=== PATIENT | male | born 1945 | race Caucasian/White ===

== ENCOUNTER 2023-08-26 09:54 | Day surgery (SDC) | payer MEDICARE, OTHER, SELFPAY ==
--- NOTE | 2023-08-25 11:43 | P.CONAN_ITS ---
Documented by User: Afsaneh Brown NP 08/25/23 11:43 HPI - Anesthesia Eval Consult details Narrative: 78yo M for Colonoscopy Eliquis for hx DVT PMFSH Past Medical History Medical History Overactive bladder Enlarged prostate Hx of fracture of finger DVT (deep venous thrombosis) Basal cell carcinoma BRADLEY on CPAP Low grade B cell lymphoproliferative disorder MGUS (monoclonal gammopathy of unknown significance) Anxiety and depression Impaired glucose tolerance BPH (benign prostatic hyperplasia) Supraventricular tachycardia Elevated cholesterol HTN (hypertension) Surgical History Surgical History Hx of hand surgery History of surgery on right wrist S/P IVC filter Hx of repair of left rotator cuff Hx of Achilles tendon repair Hx of right knee surgery H/O colonoscopy Social History Social History Patient Tobacco Use Status: Never used Tobacco Meds Allergies Allergy/AdvReac Type Severity Reaction Status Date / Time bee pollen [bee stings] Allergy Unknown Verified 08/26/23 10:10 Home Medications Medication Instructions Recorded Confirmed Last Taken Type ZZ-baxndlkigcg-jpwimk ox-Zn ER 500 tab PO 08/25/23 Unknown History mcg-750 mg-1.5 mg-25 mg tablet,ER apixaban 2.5 mg tablet (Eliquis) 2.5 mg PO BID 08/25/23 08/25/23 08/22/23 History atorvastatin 10 mg tablet 10 mg PO DAILY 08/25/23 08/25/23 Unknown History cholecalciferol (vitamin D3) 25 25 mcg PO DAILY 08/25/23 08/25/23 Unknown History mcg (1,000 unit) tablet (Vitamin D3) escitalopram oxalate 10 mg tablet 10 mg PO DAILY 08/25/23 08/25/23 Unknown History lisinopril 10 mg tablet 10 mg PO DAILY 08/25/23 08/25/23 Unknown History oxybutynin chloride 10 mg 10 mg PO DAILY 08/25/23 08/25/23 Unknown History tablet,extended release 24 hr tamsulosin 0.4 mg capsule 0.4 mg PO DAILY 08/25/23 08/25/23 Unknown History Assessment and Plan Assessment Anesthesia Assessment: Chart Reviewed Documented by User: Manasa Block MD 08/26/23 11:40 HPI - Anesthesia Eval Consult details Narrative: 78yo M for Colonoscopy Eliquis for hx DVT. 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 (monoclonal gammopathy of unknown significance) Anxiety and depression Impaired glucose tolerance BPH (benign prostatic hyperplasia) Supraventricular tachycardia Elevated cholesterol HTN (hypertension) Surgical History Surgical History Hx of hand surgery History of surgery on right wrist S/P IVC filter Hx of repair of left rotator cuff Hx of Achilles tendon repair Hx of right knee surgery H/O colonoscopy Social History Social History Patient Tobacco Use Status: Never used Tobacco Meds Allergies Allergy/AdvReac Type Severity Reaction Status Date / Time bee pollen [bee stings] Allergy Unknown Verified 08/26/23 10:10 Home Medications Medication Instructions Recorded Confirmed Last Taken Type KP-ssiphflekth-ftexee ox-Zn ER 500 tab PO 08/25/23 Unknown History mcg-750 mg-1.5 mg-25 mg tablet,ER apixaban 2.5 mg tablet (Eliquis) 2.5 mg PO BID 08/25/23 08/25/23 08/22/23 History atorvastatin 10 mg tablet 10 mg PO DAILY 08/25/23 08/25/23 Unknown History cholecalciferol (vitamin D3) 25 25 mcg PO DAILY 08/25/23 08/25/23 Unknown History mcg (1,000 unit) tablet (Vitamin D3) escitalopram oxalate 10 mg tablet 10 mg PO DAILY 08/25/23 08/25/23 Unknown History lisinopril 10 mg tablet 10 mg PO DAILY 08/25/23 08/25/23 Unknown History oxybutynin chloride 10 mg 10 mg PO DAILY 08/25/23 08/25/23 Unknown History tablet,extended release 24 hr tamsulosin 0.4 mg capsule 0.4 mg PO DAILY 08/25/23 08/25/23 Unknown History Exam Height,Weight and Vital Signs: Height 5 ft 9 in Weight 79.288 kg Vital Signs Temp Pulse Resp BP Pulse Ox O2 Del Method 08/26/23 10:21 98.0 F 82 16 152/81 H 96 Room Air Documented by User: Gabrielle Henderson MD 08/26/23 11:29 PMFSH Past Medical History Medical History Overactive bladder Enlarged prostate Hx of fracture of finger DVT (deep venous thrombosis) Basal cell carcinoma BRADLEY on CPAP Low grade B cell lymphoproliferative disorder MGUS (monoclonal gammopathy of unknown significance) Anxiety and depression Impaired glucose tolerance BPH (benign prostatic hyperplasia) Supraventricular tachycardia Elevated cholesterol HTN (hypertension) Family History Family history of problems with anesthesia: No Surgical History Surgical History Hx of hand surgery History of surgery on right wrist S/P IVC filter Hx of repair of left rotator cuff Hx of Achilles tendon repair Hx of right knee surgery H/O colonoscopy History of Problems with Anesthesia: No Social History Social History Patient Tobacco Use Status: Never used Tobacco Meds Allergies Allergy/AdvReac Type Severity Reaction Status Date / Time bee pollen [bee stings] Allergy Unknown Verified 08/26/23 10:10 Home Medications Medication Instructions Recorded Confirmed Last Taken Type LC-nraiguknrby-shldrk ox-Zn ER 500 tab PO 08/25/23 Unknown History mcg-750 mg-1.5 mg-25 mg tablet,ER apixaban 2.5 mg tablet (Eliquis) 2.5 mg PO BID 08/25/23 08/25/23 08/22/23 History atorvastatin 10 mg tablet 10 mg PO DAILY 08/25/23 08/25/23 Unknown History cholecalciferol (vitamin D3) 25 25 mcg PO DAILY 08/25/23 08/25/23 Unknown History mcg (1,000 unit) tablet (Vitamin D3) escitalopram oxalate 10 mg tablet 10 mg PO DAILY 08/25/23 08/25/23 Unknown History lisinopril 10 mg tablet 10 mg PO DAILY 08/25/23 08/25/23 Unknown History oxybutynin chloride 10 mg 10 mg PO DAILY 08/25/23 08/25/23 Unknown History tablet,extended release 24 hr tamsulosin 0.4 mg capsule 0.4 mg PO DAILY 08/25/23 08/25/23 Unknown History Exam Airway Mallampati Class: II TM Dist: >3cm Neck ROM: Full Heart: rrr Lungs: cta Assessment and Plan Assessment Anesthesia Assessment: Anesthesia Plan Discussed Final Anesthetic Review Family History of Problems with Anesthesia: No History of Problems with Anesthesia: No NPO: Yes ASA Class: III Final Preanesthetic Review: No Changes in Pt Med Stat, Meds/Allgs Chart Reviewed, Consent Obtained/Reviewed and Anes Risks/Benef Reviewed Patient Risk: Intermediate Procedure Risk: Low Anesthetic Plan Anesthetic Plan: MAC: Disposition: Standard PACU
[2023-08-26 10:12] VITALS: BMI 25.8
[2023-08-26 10:21] VITALS: BP 152/81; PULSE 82; RESP 16; TEMP 36.7; O2SAT 96
[2023-08-26] MEDS: Lactated Ringers 1,000 ML 100 ML IVCONT (10:35)
--- NOTE | 2023-08-26 11:13 | MHC.SHP ---
Pre-Procedural Eval Section A Date of Service: 08/26/23 Section B Chief Complaint: Change in bowel habit Details of Present Illness: see H&P no changes Relevant Family History (Specify if Yes): No Relevant Social History: None Present Medications: see Short Stay Collaborative assessment Medical History: No relevant PMH History of Previous Operations: No relevant previous surgery Allergies: Allergies Allergy/AdvReac Type Severity Reaction Status Date / Time bee pollen [bee stings] Allergy Unknown Verified 08/26/23 10:10 Review of Systems Sugical H&P ROS: Negative: Constitution, Cardiovascular, Respiratory, Neurological, Psychiatric, Hem-Onc, Allergic/Immunologic, Gastrointestinal, Genitourinary, Musculoskeletal, Integumentary, Endocrine and Eyes/Ears/Nose/Throat Exam Surgical H&P Exam: Normal: HEENT, Normal: Heart, Normal: Lungs, Normal: Extremities, Normal: Abdomen, Normal: Skin and Normal: Neurological Plan Diagnosis/Plan: Unchanged I have reviewed the history and physical and performed a pertinent physical examination on my patient. No changes have occurred unless specified. Time Spent With Patient Time: Total time managing care of this patient today ____ minutes.
[2023-08-26 12:05] VITALS: BP 87/47; PULSE 60; RESP 12; TEMP 36.4; O2SAT 98
[2023-08-26 12:20] VITALS: BP 118/73; PULSE 68; RESP 16; TEMP 36.9; O2SAT 98
--- NOTE | 2023-08-26 12:22 | OP_ITS ---
DATE OF SERVICE: 08/26/2023 SURGEON: Francisco Tucker MD INDICATIONS: Change in bowel habits. PREOPERATIVE DIAGNOSIS: POSTOPERATIVE DIAGNOSIS: PROCEDURE PERFORMED: Colonoscopy to the terminal ileum with biopsy. ESTIMATED BLOOD LOSS: COMPLICATIONS: ANESTHESIA: Monitored anesthesia care. ASSISTANTS: SPECIMENS: DESCRIPTION OF PROCEDURE: A history and physical were performed. The risks and benefits of the procedure were explained to the patient. Informed consent was obtained. The patient was placed in the left lateral decubitus position. A digital rectal exam was performed and was found to be normal. The Olympus pediatric video colonoscope was introduced in the rectum and advanced to the cecum with the assistance of abdominal wall pressure due to looping in the sigmoid. Examination was performed, and the scope was removed. He tolerated the procedure well and was returned to the recovery area in stable condition. FINDINGS: The terminal ileum was examined and appeared normal. This was biopsied. There was no ileitis. The visualized colonic mucosa was normal. The quality of prep was good. There were a few diverticula in the sigmoid. No polyps were identified. Random sigmoid biopsies were obtained to evaluate for microscopic colitis. Retroflexed examination showed some small internal hemorrhoids. IMPRESSION: Normal colonoscopy. RECOMMENDATION: 1. Follow up biopsy results. 2. Repeat colonoscopy is recommended in 10 years for average risk individuals. This is optional based on his age. MD TAMELA Stearns/MODL / [id number]
== END 2023-08-26 13:24 | disposition home or self-care (01) ==
PROVIDERS: PCP Internal Medicine; Visit Provider Internal Medicine Gastroenterology
PROC: 0DJD8ZZ Inspection of Lower Intestinal Tract, Via Natural or Artificial Opening Endoscopic (ICD-10-PCS; CPT 45378; principal; 2023-08-26 11:50)
DX: K57.30 Diverticulosis of large intestine without perforation or abscess without bleeding (principal); K64.8 Other hemorrhoids; K56.2 Volvulus; R19.4 Change in bowel habit; I10 Essential (primary) hypertension; E78.5 Hyperlipidemia, unspecified; G47.33 Obstructive sleep apnea (adult) (pediatric); Z99.89 Dependence on other enabling machines and devices; Z85.828 Personal history of other malignant neoplasm of skin; Z86.718 Personal history of other venous thrombosis and embolism; Z79.01 Long term (current) use of anticoagulants; Z79.02 Long term (current) use of antithrombotics/antiplatelets; Z79.899 Other long term (current) drug therapy
CPT/HCPCS: 45380; 88305; J2704